=== PATIENT | male | born 1970 | race Two or more races ===

== ENCOUNTER 2018-01-19 14:56 | Emergency (ER) | payer SELFPAY ==
[2018-01-19] MEDS ORDERED: ASPIRIN 81 MG TABLET, CHEWABLE PO ONE (16:03)
--- NOTE | 2018-01-19 16:03 | EKG REPORT ---
SEVERITY:- BORDERLINE ECG - SINUS RHYTHM : Confirmed by: Ryan Guerrero MD 19-Jan-2018 16:03:36
--- NOTE | 2018-01-19 16:21 | ER Document Report ---
ED Respiratory Problem - General Chief Complaint: Chest Pain Stated Complaint: CHEST PAIN, SHORTNESS OF BREATH Time Seen by Provider: 01/19/18 16:20 Mode of Arrival: Ambulatory Information source: Patient TRAVEL OUTSIDE OF THE [place] IN LAST 30 DAYS: No - HPI Patient complains to provider of: Chest pain, Cough, Short of breath Onset: Other - 2-3 DAYS Duration: Continuous Quality of pain: Dull Severity: Mild Context: denies: Hx asthma, Hx CHF, Hx COPD, Malignancy, Recent cardiac event, Recent foreign travel, Recent long distance trvl, Recent immobilization, Recent surgery, Smoker Chest pain/discomfort: Left Cough: Nonproductive Sputum amount: None Associated symptoms: Chest pain/discomfort, Cough, Short of breath. denies: Chills, Fever Similar symptoms previously: No Recently seen / treated by doctor: No - Related Data Allergies/Adverse Reactions: No Known Allergies Allergy (Verified 01/19/18 14:57) Past Medical History - General Information source: Patient - Social History Smoking Status: Never Smoker Cigarette use (# per day): No Chew tobacco use (# tins/day): No Frequency of alcohol use: Rare Drug Abuse: None Lives with: Family, Other - IS IN PROCESS OF MOVING TO [facility]. FROM [place]. 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 Pulmonary Medical History: Reports: None EENT Medical History: Reports: None Neurological Medical History: Reports: None Endocrine Medical History: Reports: None Renal/ Medical History: Reports: None Malignancy Medical History: Reports None GI Medical History: Reports: None Musculoskeltal Medical History: Reports None Psychiatric Medical History: Reports: None Surgical Hx: Negative Review of Systems - Review of Systems Constitutional: No symptoms reported EENT: No symptoms reported Cardiovascular: See HPI, Chest pain Respiratory: See HPI Gastrointestinal: No symptoms reported Genitourinary: No symptoms reported Musculoskeletal: No symptoms reported Skin: No symptoms reported Neurological/Psychological: No symptoms reported Physical Exam - Vital signs Vitals: Temp Pulse Resp BP Pulse Ox 98.1 F 98 24 H 148/94 H 98 01/19/18 15:09 01/19/18 15:09 01/19/18 15:09 01/19/18 15:09 01/19/18 15:09 Interpretation: Hypertensive, Tachypneic. No: Tachycardic, Hypoxic, Febrile - General General appearance: Appears well, Alert In distress: None - HEENT Head: Normocephalic Eyes: Normal Conjunctiva: Normal Ears: Normal Nasal: Normal Mouth/Lips: Normal Mucous membranes: Normal Pharynx: Normal Neck: Normal - Respiratory Respiratory status: No respiratory distress Chest status: Tender - EFT SIDE, IN AREA OF COMPLAINT Breath sounds: Normal, Productive cough - LOOSE, INFREQUENT. No: Wheezing - Cardiovascular Rhythm: Regular Heart sounds: Normal auscultation Murmur: No - Abdominal Inspection: Normal Distension: No distension Bowel sounds: Normal - Extremities General upper extremity: Normal inspection General lower extremity: Normal inspection. No: Tender, Edema - Neurological Neuro grossly intact: Yes Cognition: Normal Orientation: AAOx4 - Psychological Associated symptoms: Normal affect, Normal mood - Skin Skin Temperature: Warm Skin Moisture: Dry Skin Color: Normal Skin Turgor: Elastic Course - Re-evaluation Re-evalutation: 01/19/18 18:39 Reevaluation: Patient appears much more comfortable, however he states his chest pain is not improved at all. He denies any improvement with nitroglycerin. He states he is still short of breath. His vital signs are more nearly normal, his tachypnea has improved, his tachycardia has improved, and his blood pressure has improved. Oxygen saturation is 96% on room air. Results of laboratory and radiographic studies discussed. Repeat troponin is pending. - Vital Signs Vital signs: Temp Pulse Resp BP Pulse Ox 98.1 F 98 22 H 121/83 95 01/19/18 15:09 01/19/18 15:09 01/20/18 02:40 01/20/18 02:40 01/20/18 02:40 - Laboratory Result Diagrams: 01/19/18 16:12 01/19/18 16:12 Laboratory results interpreted by me: 01/19/18 01/19/18 16:12 16:12 WBC 14.3 H RBC 5.99 H Hgb 18.2 H Hct 52.8 H Absolute Neutrophils 10.6 H Glucose 137 H - Diagnostic Test Radiology reviewed: Image reviewed, Reports reviewed - EKG Interpretation by Me EKG shows normal: Sinus rhythm, [place], Intervals, QRS Complexes, ST-T Waves Rate: Normal Rhythm: NSR - Consults DR. PETERSON Time consulted: 23:03 Reason for consultation: 01/19/18 23:06 NOT CONVINCED OF INDICATION FOR ADMISSION. REQUEST PATIENT AMBULATE WITH PULSE OX. Discharge - Discharge Clinical Impression: Chest wall pain Acute bronchitis Qualifiers: Bronchitis organism: other organism Qualified Code(s): J20.8 - Acute bronchitis due to other specified organisms Hypertension Qualifiers: Hypertension type: essential hypertension Qualified Code(s): I10 - Essential ( primary) hypertension Condition: Stable Disposition: HOME, SELF-CARE Instructions: Chest Wall Pain ([facility]), Bronchitis ([facility]), Corticosteroid Medication ([facility]), Beta Blockers ([facility]) Additional Instructions: REST, DRINK PLENTY OF FLUIDS. MEDS DIRECTED. 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 RETURN TO [facility] IF YOU GET WORSE IN ANY WAY. Prescriptions: Metoprolol Tartrate [Lopressor 25 mg Tablet] 25 mg PO Q12 #60 tab Prednisone [Deltasone 10 mg Tablet] 10 mg PO ASDIR PRN #21 tablet PRN Reason:
[2018-01-19 16:22] LABS: ABSOLUTE BASOPHILS # (AUTO) 0.1 10^3/uL (0.0-0.2); ABSOLUTE EOSINOPHILS # (AUTO) 0.1 10^3/uL (0.0-0.6); ABSOLUTE LYMPHOCYTES (AUTO) 2.5 10^3/uL (0.5-4.7); ABSOLUTE NEUT (AUTO) 10.6 10^3/uL (1.7-8.2); BASOPHILS % (AUTO) 0.5 % (0-2); EOSINOPHILS % (AUTO) 0.6 % (0-6); HEMATOCRIT 52.8 % (37.9-51.0); HEMOGLOBIN 18.2 g/dL (13.5-17.0); LYMPHOCYTES % (AUTO) 17.4 % (13-45); MEAN CORPUSCULAR HEMOGLOBIN 30.4 pg (27.0-33.4); MEAN CORPUSCULAR HGB CONC 34.5 g/dL (32.0-36.0); MEAN CORPUSCULAR VOLUME 88 fl (80-97); MONOCYTES % (AUTO) 7.3 % (3-13); PLATELET COUNT 193 10^3/uL (150-450); RED BLOOD COUNT 5.99 10^6/uL (4.35-5.55); RED CELL DISTRIBUTION WIDTH 13.5 % (11.5-14.0); SEGMENTED NEUTROPHILS % (AUTO) 74.2 % (42-78); TOTAL CELLS COUNTED % (AUTO) 100 %; WHITE BLOOD COUNT 14.3 10^3/uL (4.0-10.5)
[2018-01-19] MEDS ORDERED: NITROGLYCERIN 0.4 MG/TAB 25 TAB/BOTTLE SL PRN (16:39)
[2018-01-19 16:40] LABS: ALANINE AMINOTRANSFERASE 37 U/L (21-72); ALBUMIN 4.3 g/dL (3.5-5.0); ALKALINE PHOSPHATASE 75 U/L (38-126); ANION GAP 12 (5-19); ASPARTATE AMINO TRANSFERASE 28 U/L (17-59); BILIRUBIN,DIRECT 0.4 mg/dL (0.0-0.4); BILIRUBIN,TOTAL 0.7 mg/dL (0.2-1.3); BLOOD UREA NITROGEN 13 mg/dL (7-20); CALCIUM 9.5 mg/dL (8.4-10.2); CARBON DIOXIDE 29 mmol/L (22-30); CHLORIDE 102 mmol/L (98-107); CREATINE KINASE 81 U/L (55-170); GLUCOSE 137 mg/dL (75-110); POTASSIUM 3.7 mmol/L (3.6-5.0); SODIUM 142.8 mmol/L (137-145); TOTAL PROTEIN 7.5 g/dL (6.3-8.2)
[2018-01-19 16:53] LABS: CREATINE KINASE MB 0.57 ng/mL (<4.55); TROPONIN I < 0.012 ng/mL
[2018-01-19] MEDS ORDERED: METOPROLOL TARTRATE PF/INJ 5 MG/5 ML SDV IV ONE (16:53)
--- NOTE | 2018-01-19 17:25 | RADIOLOGY REPORT (SQ) ---
EXAM DESCRIPTION: CHEST SINGLE VIEW COMPLETED DATE/TIME: 01/19/2018 5:13 pm REASON FOR STUDY: bed 15 cp COMPARISON: None. EXAM PARAMETERS: NUMBER OF VIEWS: One view. TECHNIQUE: Single frontal radiographic view of the chest acquired. RADIATION DOSE: NA LIMITATIONS: None. FINDINGS: LUNGS AND PLEURA: No opacities, masses or pneumothorax. No pleural effusion. MEDIASTINUM AND HILAR STRUCTURES: No masses. Contour normal. HEART AND VASCULAR STRUCTURES: Heart normal in size. Normal vasculature. BONES: No acute findings. HARDWARE: None in the chest. OTHER: No other significant finding. IMPRESSION: NO ACUTE RADIOGRAPHIC FINDING IN THE CHEST. TECHNICAL DOCUMENTATION: JOB ID: [id number] [employer]- All Rights Reserved Reading location - IP/workstation name: [email or web address]
[2018-01-19] MEDS ORDERED: IPRATROPIUM/ALBUTEROL 0.5-2.5 MG/3 ML AMPUL NEB ONE (17:50)
[2018-01-19] MEDS ORDERED: METHYLPREDNISOLONE INJ 125 MG/2 ML SDV IV ONE (17:50)
--- NOTE | 2018-01-19 21:01 | RADIOLOGY REPORT (SQ) ---
EXAM DESCRIPTION: CTA CHEST COMPLETED DATE/TIME: 01/19/2018 8:39 pm REASON FOR STUDY: CHEST PAIN, DYSPNEA, R/O P.E. COMPARISON: None. TECHNIQUE: CT scan of the chest performed using helical scanning technique with dynamic intravenous contrast injection. Images reviewed with lung, soft tissue and bone windows. Reconstructed coronal and sagittal MPR images reviewed. Additional 3 dimensional post-processing performed to develop Maximal Intensity Projection images (NV P). All images stored on PACS. All CT scanners at this facility use dose modulation, iterative reconstruction, and/or weight based d osing when appropriate to reduce radiation dose to as low as reasonably achievable (ALARA). [facility]: Dose Right [facility]: CareDose [facility]: Dose Right [facility]: Teradose 4D [facility]: [employer] CONTRAST TYPE AND DOSE: contrast/concentration: Isovue 370.00 mg/ml; Total Contrast Delivered: 79.0 ml; Total Saline Delivered: 70.1 ml Contrast bolus optimized for the pulmonary arteries. Not diagnostic for the aorta. RENAL FUNCTION: None required. The patient is less than 50 years old. RADIATION DOSE: CT Rad equipment meets quality standard of care and radiation dose reduction techniq ues were employed. CTDIvol: 14.9 - 36.0 mGy. DLP: 1424 mGy-cm. . LIMITATIONS: None. FINDINGS: LUNGS AND PLEURA: No consolidation. Minimal subsegmental atelectasis is present in both l ower lobes. No pneumothorax. No pleural effusions, calcifications. AORTA AND GREAT VESSELS: No aneurysm. Contrast bolus not optimized for the aorta. HEART: No pericardial effusion. No significant coronary artery calcifications. PULMONARY ARTERIES: No emboli visualized in the main pulmonary arteries or the segmental branches. HILAR AND MEDIASTINAL STRUCTURES: No identified masses or abnormal nodes. HARDWARE: None in the chest. UPPER ABDOMEN: No significant findings. Limited exam. THYROID AND OTHER SOFT TISSUES: No masses. No adenopathy. BONES: No acute or significant finding. 3D MIPS: Confirm above findings. OTHER: No other significant finding. IMPRESSION: No emboli visualized in the main pulmonary arteries or the segmental branches. No consolidation. Minimal subsegmental atelectasis is present in both lower lobes. COMMENT: Quality ID # [id number]: Final reports with documentation of one or more dose reduction techniques (e.g., Automated exposure control, adjustment of the mA and/or kV according to patient size, use of iterative reconstruction technique) TECHNICAL DOCUMENTATION: JOB ID: [id number] [id number] 2010 [employer]- All Rights Reserved Reading location - IP/workstation name: [email or web address]
[2018-01-19] MEDS ORDERED: NITROGLYCERIN 2% OINTMENT 1 GM PACKET TP ONE (22:28)
[2018-01-19] MEDS ORDERED: CEFTRIAXONE 1 GM/D5W RTU 1 GM/50 ML RTUPB IV ONE (22:28)
[2018-01-19] MEDS ORDERED: CEFTRIAXONE INJ 1000 MG VIAL ONE (23:03)
[2018-01-20] MEDS ORDERED: METOPROLOL TARTRATE PF/INJ 5 MG/5 ML SDV IV ONE (00:05)
[2018-01-20] MEDS ORDERED: ACETAMINOPHEN 325 MG TABLET PO ONE (03:15)
[2018-01-20 03:41] VITALS: BP 110/68
== END 2018-01-20 03:45 | disposition home or self-care (01) ==
LOC: ER 14:56
DX: J20.8 Acute bronchitis due to other specified organisms (principal); I10 Essential (primary) hypertension; R07.89 Other chest pain; R06.02 Shortness of breath; R05 Cough
CPT/HCPCS: 93005; 96376; 94640; 99285; 96374; 96375; 36415; 82553; 82550; 85025; 80053; 84484; 71045; 71275; 93010; J2930; J3490 ×2; J0696; J7620